=== PATIENT | female | born 1950 | race African-American/Black ===

== ENCOUNTER 2017-02-12 06:11 | Day surgery (SDC) | payer BC, OTHER ==
[~2017-02-12] VITALS: Ht 154.9 cm; Wt 48.4 kg
[2017-02-12] MEDS ORDERED: IRON325 MG PO (07:17)
[2017-02-12] MEDS ORDERED: NORVASC2.5 MG PO (07:17)
[2017-02-12 07:18] VITALS: BP 140/102; PULSE 100; TEMP 97.5
[2017-02-12 08:10] VITALS: BP 121/86; PULSE 75; TEMP 97.3
[2017-02-12 08:25] VITALS: BP 118/81; PULSE 76
[2017-02-12 08:40] VITALS: BP 126/84; PULSE 70
[2017-02-12 09:00] VITALS: BP 122/77; PULSE 84
== END 2017-02-12 09:30 | disposition home or self-care (01) ==
LOC: SDCO 06:11
DX: D50.9 Iron deficiency anemia, unspecified (principal); R19.5 Other fecal abnormalities; K64.2 Third degree hemorrhoids; K21.9 Gastro-esophageal reflux disease without esophagitis; Z86.010 Personal history of colon polyps; Z85.038 Personal history of other malignant neoplasm of large intestine; Z98.84 Bariatric surgery status; I10 Essential (primary) hypertension
CPT/HCPCS: J2250; J3010; J7030

== ENCOUNTER 2017-03-26 11:00 | Outpatient (RCR) | payer BC, OTHER ==
[2017-03-26] VITALS (9 sets, daily range): BP systolic 105–157; BP diastolic 69–98; PULSE 86–97; TEMP 97.8–98.1
[~2017-03-26] VITALS: Ht 154.9 cm; Wt 46.0 kg
[~2017-03-26 11:00] MED LIST: IRON325 MG PO; NORVASC2.5 MG PO
== END 2017-03-26 17:32 | disposition home or self-care (01) ==
LOC: EUO 11:00
DX: D50.9 Iron deficiency anemia, unspecified (principal)
CPT/HCPCS: J7050; P9016

== ENCOUNTER 2017-06-03 11:49 | Day surgery (SDC) | payer MEDICARE, BC, OTHER ==
[~2017-06-03] VITALS: Ht 157.5 cm; Wt 49.5 kg
[2017-06-03 12:21] VITALS: BP 133/85; PULSE 77; TEMP 97.9
[2017-06-03] MEDS ORDERED: TYLENOL 500MG500 MG PO (12:25)
[2017-06-03] MEDS ORDERED: LASIX 20MG TABL20 MG PO (12:27)
[2017-06-03] MEDS ORDERED: LANOXIN 0.120.125 MG PO (12:27)
[2017-06-03] MEDS ORDERED: CENTRUM SILVER1 TAB PO (12:28)
[2017-06-03] MEDS ORDERED: NORCO 325 MG-51 TAB PO ×2 (12:28→16:45)
[2017-06-03] MEDS ORDERED: B COMPLEX & B121 TAB PO (12:30)
[2017-06-03 15:37] VITALS: TEMP 97.7
[2017-06-03 16:00] VITALS: BP 129/74; PULSE 64
[2017-06-03 16:15] VITALS: BP 125/79; PULSE 75
[2017-06-03 16:30] VITALS: BP 120/77; PULSE 78
[2017-06-03] MEDS ORDERED: SENOKOT S 50 MG1 TAB PO (16:47)
[2017-06-03] MEDS ORDERED: PYRIDIUM 100MG100 MG PO (16:47)
== END 2017-06-03 17:00 | disposition home or self-care (01) ==
LOC: SDCO 11:49
DX: N20.2 Calculus of kidney with calculus of ureter (principal); I11.0 Hypertensive heart disease with heart failure; I20.9 Angina pectoris, unspecified; K92.2 Gastrointestinal hemorrhage, unspecified; R31.9 Hematuria, unspecified; I48.91 Unspecified atrial fibrillation; D64.9 Anemia, unspecified; Z98.84 Bariatric surgery status; I95.9 Hypotension, unspecified; Z84.1 Family history of disorders of kidney and ureter; Z87.442 Personal history of urinary calculi; Z80.3 Family history of malignant neoplasm of breast; Z82.49 Family history of ischemic heart disease and other diseases of the circulatory system; Z82.61 Family history of arthritis; Z82.3 Family history of stroke; Z80.0 Family history of malignant neoplasm of digestive organs; Z83.3 Family history of diabetes mellitus; Z90.710 Acquired absence of both cervix and uterus; Z85.038 Personal history of other malignant neoplasm of large intestine; Z90.49 Acquired absence of other specified parts of digestive tract
CPT/HCPCS: C1769; J0690; J1100; J2270; J2405; J2704; J3010; J7120

== ENCOUNTER → 2018-07-07 | Day surgery (SDC) | payer MEDICARE, OTHER ==
[~2018-07-07] VITALS: Ht 157.5 cm; Wt 68.3 kg
[2018-07-07] VITALS (10 sets, daily range): BP systolic 131–163; BP diastolic 75–111; PULSE 85–104; TEMP 98.8–99
[~2018-07-07] MED LIST changes: +B COMPLEX & B121 TAB PO; +CARDIZEM120 MG PO; +CENTRUM SILVER1 TAB PO; +LANOXIN 0.120.125 MG PO; +LASIX 20MG TABL20 MG PO; +NATURAL E400 IU PO; +NORCO 325 MG-51 TAB PO; +PYRIDIUM 100MG100 MG PO; +SENOKOT S 50 MG1 TAB PO; +TYLENOL 500MG500 MG PO; +VITAMIN A10k; +VITAMIN B12 781 TAB PO; +VITAMIN D 400400 IU PO; +VITAMINC250CH
[2018-07-07 12:13] LABS: HEMOGLOBIN 9.4 g/dl (12.5-16.0); MEAN CELL VOLUME 82 fl (80.0-100.0); MEAN CORPUSCULAR HEMOGLOBIN 26 pg (27.0-31.0); MEAN CORPUSCULAR HGB CONC 31 g/dl (33.0-37.0); MEAN PLATELET VOLUME 9.9 fl (7.4-10.4); PLATELET COUNT 176 K/mm3 (130-400); RED BLOOD COUNT 3.65 M/mm3 (4.10-5.30); REDCELL DISTRIBUTION WIDTH-CV 22.8 % (11.5-14.5)
[2018-07-07 12:17] LABS: PROTHROMBIN TIME 11.4 SECONDS (9.7-12.8)
[2018-07-07 12:22] LABS: CALCIUM 9.3 mg/dL (8.4-10.2); CREATININE, serum 0.91 mg/dL (0.52-1.25); POTASSIUM 4.3 mmol/L (3.4-5.0)
== END ==
LOC: COL.CAR 11:02
PROVIDERS: Internal Medicine Interventional Cardiology
DX: I20.8 Other forms of angina pectoris (principal); R94.39 Abnormal result of other cardiovascular function study; I48.91 Unspecified atrial fibrillation; R60.0 Localized edema; F17.220 Nicotine dependence, chewing tobacco, uncomplicated; Z82.3 Family history of stroke; Z83.3 Family history of diabetes mellitus
CPT/HCPCS: J1644; J2250; J3010; Q9967

== ENCOUNTER 2019-03-06 14:33 | Emergency (ER) | payer MEDICARE, OTHER ==
[~2019-03-06] VITALS: Ht 157.5 cm; Wt 69.2 kg
[2019-03-06 14:38] VITALS: TEMP 98.2
[2019-03-06] MEDS ORDERED: ANTACID 225 MG360 M1 (15:05)
[2019-03-06] MEDS ORDERED: ASPIRIN 32325 MG/TAB (15:07)
[2019-03-06] MEDS ORDERED: MILK THISTLE150 MG (15:08)
[2019-03-06 15:09] LABS: BASO % 0.5 % (0.0-2.0); EOS # 0.1 (0.0-0.7); EOS % 1.4 % (0-4.0); GRAN # 2.6 (1.4-6.5); GRAN % 61.9 % (42.2-75.2); LYMPH # 0.8 (1.2-3.4); LYMPH % 18.1 % (20.0-51.0); MEAN CELL VOLUME 81 fl (80.0-100.0); MEAN CORPUSCULAR HGB CONC 31 g/dl (33.0-37.0); MEAN PLATELET VOLUME 11.8 fl (7.4-10.4); MONO # 0.8 (0.1-0.6); MONO % 17.6 % (1.7-9.3); PLATELET COUNT 263 K/mm3 (130-400); RED BLOOD COUNT 3.92 M/mm3 (4.10-5.30); REDCELL DISTRIBUTION WIDTH-CV 22.5 % (11.5-14.5)
[2019-03-06 15:14] LABS: PROTHROMBIN TIME 11.2 SECONDS (9.7-12.8)
[2019-03-06 15:15] LABS: HEMATOCRIT 31.9 % (37.0-47.0); HEMOGLOBIN 9.9 g/dl (12.5-16.0); MEAN CORPUSCULAR HEMOGLOBIN 25 pg (27.0-31.0)
[2019-03-06 15:20] LABS: ALBUMIN 3.6 gm/dL (3.5-5.0); BILIRUBIN,TOTAL 0.4 mg/dL (0.0-1.0); CALCIUM 9.1 mg/dL (8.4-10.2); CREATININE, serum 1.11 (0.52-1.25); POTASSIUM 4.2 mmol/L (3.4-5.0); TOTAL PROTEIN 6.8 gm/dL (6.4-8.2)
[2019-03-06 16:38] LABS: MUCOUS Present /lpf; PH 5 (5-8); URINE APPEARANCE Cloudy; URINE BACTERIA Many /hpf; URINE BILIRUBIN Negative (NEGATIVE); URINE BLOOD Negative (NEGATIVE); URINE COLOR Yellow; URINE GLUCOSE Negative (NEGATIVE); URINE KETONE Negative (NEGATIVE); URINE LEUKOCYTE ESTERASE 3+ (NEGATIVE); URINE NITRATE Positive (NEGATIVE); URINE PROTEIN(semi-quant) Negative (NEGATIVE); URINE UROBILINOGEN Negative (NEGATIVE); URINE WBC >50 /hpf
[2019-03-06 16:42] LABS: DIGOXIN 0.9 ng/mL (0.8-2.0)
[2019-03-06 16:54] LABS: COLLECTION METHOD CLEAN CATCH
[2019-03-06 17:22] VITALS: BP 134/80; PULSE 74
[2019-03-06] MEDS ORDERED: PROTONIX20 MG PO (17:23)
[2019-03-06] MEDS ORDERED: ZOFRAN 4MG T4 MG/TAB PO (17:23)
[2019-03-06] MEDS ORDERED: CEPHALEXIN500 M1 PO (17:23)
== END 2019-03-06 17:36 | disposition home or self-care (01) ==
LOC: COL.ER 14:33
PROVIDERS: Emergency Medicine
DX: N39.0 Urinary tract infection, site not specified (principal); K92.1 Melena; Z79.82 Long term (current) use of aspirin; I48.91 Unspecified atrial fibrillation; Z90.49 Acquired absence of other specified parts of digestive tract; Z90.89 Acquired absence of other organs; Z90.710 Acquired absence of both cervix and uterus; Z98.84 Bariatric surgery status
CPT/HCPCS: Q9967